=== PATIENT | female | born 1940 | race Caucasian/White ===

== ENCOUNTER 2017-08-21 07:41 | Outpatient (CLI) | payer OTHER ==
[~2017-08-21 07:41] MED LIST: ALTACE5 MG PO; ASA81 MG PO; FOLIC ACID1 MG PO; ISORDIL10 MG PO; LIPITOR40 MG PO; PEPCID20 MG PO; PLAVIX75 MG PO; TOPROL XL100 MG PO
== END 2017-08-21 07:47 | disposition home or self-care (01) ==
LOC: NUCLEAR 07:41
DX: I20.0 Unstable angina (principal); I25.10 Atherosclerotic heart disease of native coronary artery without angina pectoris; E78.2 Mixed hyperlipidemia
CPT/HCPCS: 78452; 93017; A9500

== ENCOUNTER 2018-02-11 09:04 | Outpatient (CLI) | payer OTHER | END 2018-02-11 10:00 | disposition home or self-care (01) | LOC: NUCLEAR 09:04 | DX: I73.9 Peripheral vascular disease, unspecified (principal) ==

== ENCOUNTER → 2019-02-10 | Outpatient (CLI) | payer OTHER | END | disposition home or self-care (01) | LOC: SONOGRAMA 10:25 | DX: I20.8 Other forms of angina pectoris (principal) ==

== ENCOUNTER 2019-06-06 10:53 | Outpatient (CLI) | payer OTHER | END 2019-06-06 10:54 | disposition home or self-care (01) | LOC: RAD 10:53 | DX: M12.89 Other specific arthropathies, not elsewhere classified, multiple sites (principal) ==

== ENCOUNTER 2019-10-28 10:19 | Outpatient (CLI) | payer OTHER | END 2019-10-28 10:24 | disposition home or self-care (01) | LOC: RAD 10:19 | PROVIDERS: ATTEND Internal Medicine Cardiovascular Disease | DX: M12.841 Other specific arthropathies, not elsewhere classified, right hand (principal); M12.842 Other specific arthropathies, not elsewhere classified, left hand ==

== ENCOUNTER 2020-05-08 04:23 | Emergency (ER) | payer OTHER ==
[~2020-05-08] VITALS: Ht 154.9 cm; Wt 59.0 kg
== END 2020-05-08 09:08 | disposition home or self-care (01) ==
LOC: ER 04:23
DX: N39.0 Urinary tract infection, site not specified (principal); R30.0 Dysuria

== ENCOUNTER → 2020-09-11 | Outpatient (CLI) | payer OTHER | END | disposition home or self-care (01) | LOC: NUCLEAR 06:40 | PROVIDERS: ATTEND Internal Medicine Cardiovascular Disease | DX: I25.9 Chronic ischemic heart disease, unspecified (principal); I20.9 Angina pectoris, unspecified | CPT/HCPCS: 78452; 93017; A9500; J0153 ==

== ENCOUNTER 2021-02-01 10:45 | Outpatient (CLI) | payer OTHER | END 2021-02-01 10:55 | disposition home or self-care (01) | LOC: RAD 10:45 | PROVIDERS: ATTEND Internal Medicine Cardiovascular Disease | DX: M25.552 Pain in left hip (principal); M25.551 Pain in right hip; M12.88 Other specific arthropathies, not elsewhere classified, other specified site ==

== ENCOUNTER 2021-05-09 08:02 | Outpatient (CLI) | payer OTHER | END 2021-05-09 08:08 | disposition home or self-care (01) | LOC: SONOGRAMA 08:02 | PROVIDERS: ATTEND Internal Medicine Cardiovascular Disease | DX: R10.84 Generalized abdominal pain (principal) ==

== ENCOUNTER 2021-08-13 07:05 | Outpatient (CLI) | payer OTHER | END 2021-08-13 07:22 | disposition home or self-care (01) | LOC: TOM 07:05 | PROVIDERS: ATTEND Internal Medicine Cardiovascular Disease | DX: R10.32 Left lower quadrant pain (principal); R10.31 Right lower quadrant pain ==

== ENCOUNTER 2021-11-25 12:43 | Emergency (ER) | payer OTHER ==
[~2021-11-25] VITALS: Ht 154.9 cm; Wt 56.7 kg
[2021-11-25] MEDS ORDERED: SYNTHROID50 MCG PO (13:19)
[2021-11-25] MEDS ORDERED: MINOCYCLINE HCL50 M1 PO (13:21)
[2021-11-25] MEDS ORDERED: METRONIDAZOLE500 MG PO (18:56)
[2021-11-25] MEDS ORDERED: OMEPRAZOLE40 MG PO (18:56)
[2021-11-25] MEDS ORDERED: CIPRO500 MG PO (18:56)
[2021-11-25] MEDS ORDERED: LEVSIN/SL0.125 MG SL (18:56)
== END 2021-11-25 21:56 | disposition home or self-care (01) ==
LOC: ER 12:43
DX: K52.9 Noninfective gastroenteritis and colitis, unspecified (principal)

== ENCOUNTER 2022-09-01 07:55 | Outpatient (CLI) | payer OTHER ==
[~2022-09-01 07:55] MED LIST changes: +CIPRO500 MG PO; +LEVSIN/SL0.125 MG SL; +METRONIDAZOLE500 MG PO; +MINOCYCLINE HCL50 M1 PO; +OMEPRAZOLE40 MG PO; +SYNTHROID50 MCG PO
== END 2022-09-01 08:26 | disposition home or self-care (01) ==
LOC: TOM 07:55
PROVIDERS: ATTEND Internal Medicine Gastroenterology
DX: R10.84 Generalized abdominal pain (principal)

== ENCOUNTER 2023-08-12 10:20 | Outpatient (CLI) | payer OTHER | END 2023-08-12 10:26 | disposition home or self-care (01) | LOC: MAMO-SONO 10:20 | PROVIDERS: ATTEND Internal Medicine Cardiovascular Disease | DX: N60.11 Diffuse cystic mastopathy of right breast (principal); N60.12 Diffuse cystic mastopathy of left breast; Z12.31 Encounter for screening mammogram for malignant neoplasm of breast ==

== ENCOUNTER 2024-08-08 07:12 | Outpatient (CLI) | payer OTHER ==
[~2024-08-08 07:12] MED LIST changes: +GLUMETZA500 MG PO; +MIRALAX510 GM PO
== END 2024-08-08 07:19 | disposition home or self-care (01) ==
LOC: TOM 07:12
PROVIDERS: ATTEND Internal Medicine Gastroenterology
DX: R10.32 Left lower quadrant pain (principal)